=== PATIENT | male | born 1965 | race Caucasian/White ===

== ENCOUNTER → 2016-12-13 | Outpatient (CLI) | payer BC | LOC: BMCIMAGING 09:04 | PROVIDERS: ATTEND Orthopaedic Surgery | DX: M25.561 Pain in right knee (principal); M25.562 Pain in left knee; R93.8 Abnormal findings on diagnostic imaging of other specified body structures; M11.261 Other chondrocalcinosis, right knee; I70.90 Unspecified atherosclerosis ==